=== PATIENT | female | born 1945 | race Caucasian/White ===

== ENCOUNTER 2021-01-31 12:15 | Emergency (ER) | payer MEDICAID, MEDICARE, OTHER ==
[~2021-01-31] VITALS: Ht 152.4 cm; Wt 79.7 kg
[2021-01-31 14:17] LABS: BASOPHILS % (AUTO) 1 % (0-1); EOSINOPHILS % (AUTO) 7 % (1-7); LYMPHOCYTES % (AUTO) 32 % (22-44); MEAN CORPUSCULAR HGB CONC 33.6 g/dL (32.4-35.8); MEAN PLATELET VOLUME 7.8 fL (7.4-10.4); MONOCYTES % (AUTO) 9 % (2-9); NEUTROPHILS % (AUTO) 52 % (42-75); PLATELET COUNT 224 x10^3/uL (130-400); RED BLOOD COUNT 5.02 x10^6/uL (3.82-5.3); RED CELL DISTRIBUTION WIDTH 16.1 % (9.6-15.2)
[2021-01-31 14:22] LABS: MD NO
[2021-01-31 14:29] LABS: ALBUMIN 3.6 g/dL (3.4-5.0); ANION GAP 5 mmol/L (5-15); CHLORIDE 109 mmol/L (98-107)
[2021-01-31 14:35] LABS: CREATININE 1.17 mg/dL (0.55-1.02)
--- NOTE | 2021-01-31 15:44 | NUR ---
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
[2021-01-31 16:05] VITALS: BP 183/104
--- NOTE | 2021-01-31 17:20 | NUR ---
PT NOT PRESENT IN ROOM FOR DISCHARGE. PAPERS LEFT AT CHARGE DESK.
== END 2021-01-31 18:13 | disposition home or self-care (01) ==
LOC: ED 12:20
DX: M79.671 Pain in right foot (principal); M79.672 Pain in left foot; G89.29 Other chronic pain; R06.89 Other abnormalities of breathing
CPT/HCPCS: 36415; 71045; 80048; 82040; 83880; 85025; 93970; 99285